=== PATIENT | male | born 1990 | race Hispanic/Latino ===

== ENCOUNTER 2018-01-14 01:51 | Emergency (ER) | payer SELFPAY ==
[2018-01-14 02:10] VITALS: BP 167/99; PULSE 79; RESP 17; TEMP 98.3; O2SAT 98
[2018-01-14] MEDS ORDERED: Sodium Chloride 0.9% 100 ML IV SCH (02:30)
--- NOTE | 2018-01-14 02:45 | ED PDOC ---
HPI: Psych/Substance Abuse Time Seen by Provider: 01/14/18 02:04 Chief Complaint (Nursing): Weakness/Neurological Deficit Chief Complaint (Provider): Weakness/Neurological Deficit History Per: Patient History/Exam Limitations: no limitations Onset/Duration Of Symptoms: Days (x 3) Current Symptoms Are (Timing): Still Present Modifying Factor(s): Cocaine Additional Complaint(s): 27 year old male presents to the ED complaining of weakness for the last three days. Patient reports he has been working very long hours and has not been eating or drinking well for the last three days. States that he works at a building [employer]. Upon further questioning, he admitted to using nearly 10 g of cocaine in the last week. Denies nausea, vomiting, diarrhea, chest pain, diaphoresis and shortness of breath. PMD: none provided Past Medical History Reviewed: Historical Data, Nursing Documentation, Vital Signs Vital Signs: Last Vital Signs Temp 98.3 F 01/14/18 02:02 Pulse 79 01/14/18 02:02 Resp 17 01/14/18 02:02 BP 167/99 H 01/14/18 02:02 Pulse Ox 98 01/14/18 02:02 - Medical History PMH: No Chronic Diseases - Surgical History Surgical History: No Surg Hx - Family History Family History: States: Unknown Family Hx - Social History Current smoker - smoking cessation education provided: Yes Alcohol: Social Drugs: Cocaine - Allergies Allergies/Adverse Reactions: Allergies Allergy/AdvReac Type Severity Reaction Status Date / Time No Known Allergies Allergy Verified 01/14/18 02:09 Review of Systems ROS Statement: Except As Marked, All Systems Reviewed And Found Negative Constitutional: Positive for: Weakness, Other (fatigue) Physical Exam - Reviewed Nursing Documentation Reviewed: Yes Vital Signs Reviewed: Yes - Physical Exam Appears: Positive for: Non-toxic, No Acute Distress Head Exam: Positive for: ATRAUMATIC, NORMOCEPHALIC Skin: Positive for: Normal Color, Warm, Dry Eye Exam: Positive for: EOMI, Normal appearance, PERRL Neck: Positive for: Normal, Painless ROM, Supple Cardiovascular/Chest: Positive for: Regular Rate, Rhythm. Negative for: Murmur Respiratory: Positive for: Normal Breath Sounds. Negative for: Respiratory Distress Gastrointestinal/Abdominal: Positive for: Normal Exam, Soft Extremity: Positive for: Normal ROM. Negative for: Deformity Neurologic/Psych: Positive for: Alert, Oriented. Negative for: Motor/Sensory Deficits - Laboratory Results Result Diagrams: 01/14/18 03:01 01/14/18 03:01 - ECG O2 Sat by Pulse Oximetry: 98 (RA) Pulse Ox Interpretation: Normal Medical Decision Making Medical Decision Making: time: 02:23 Impression: 27 year old [place] male with fatigue in setting of substance abuse. Initial Plan: --EKG --Alcohol serum --CMP --urine drug --Urine dip --CBC with differentials --Normal saline IV 100 mls/hr Time; 03:52 Labs reviewed and revealed no clinically significant abnormalities with the exception of a positive UDS for cocaine. Patient is stable for discharge. Diagnosis is cocaine abuse. ---- Scribe Attestation: Documented by Shonna Mckeon, acting as a scribe for Montrell De La Vega MD Provider Scribe Attestation: All medical record entries made by the Scribe were at my direction and personally dictated by me. I have reviewed the chart and agree that the record accurately reflects my personal performance of the history, physical exam, medical decision making, and the department course for this patient. I have also personally directed, reviewed, and agree with the discharge instructions and disposition. Disposition - Clinical Impression Clinical Impression: Cocaine abuse - Patient ED Disposition Is Patient to be Admitted: No - Disposition Disposition: Routine/Home Disposition Time: 03:52 Condition: STABLE Instructions: Cocaine Use Disorder Forms: [employer] (Mexican)
[2018-01-14 03:08] LABS: BASO % 0.3 % (0.0-2.0); EOS # 0.1 K/uL (0.0-0.7); EOS % 1.3 % (0.0-4.0); HEMOGLOBIN 14.5 g/dL (12.0-18.0); LYMPH # 1.4 K/uL (1.0-4.3); LYMPH % 19.6 % (20.0-40.0); MEAN CELL VOLUME 90.2 fl (80.0-94.0); MEAN CORPUSCULAR HEMOGLOBIN 31.6 pg (27.0-31.0); MEAN CORPUSCULAR HGB CONC 35.1 g/dL (33.0-37.0); MEAN PLATELET VOLUME 7.2 fl (7.2-11.7); MONO # 0.6 K/uL (0.0-0.8); MONO % 7.5 % (0.0-10.0); NEUT # 5.2 K/uL (1.8-7.0); NEUT % 71.3 % (50.0-75.0); NRBC % 0.1 % (0.0-0.0); RBC 4.58 Mil/uL (4.40-5.90); RED CELL DISTRIBUTION WIDTH 12.7 % (11.5-14.5); WHITE BLOOD COUNT 7.3 K/uL (4.8-10.8)
[2018-01-14 03:22] LABS: ALB/GLOB RATIO 1.5 (1.0-2.1); ALBUMIN 4.3 g/dL (3.5-5.0); ALT/SGPT 29 U/L (21-72); AST/SGOT 40 U/L (17-59); BLOOD UREA NITROGEN 11 mg/dl (9-20); CALCIUM 9.2 mg/dL (8.4-10.2); GFR AFRICAN-AMERICAN > 60; GFR NON-AFRICAN AMERICAN > 60
[2018-01-14 03:31] LABS: BARBITURATES, UR NEGATIVE (NEGATIVE)
[2018-01-14 03:33] LABS: BENZODIAZEPINES, UR NEGATIVE (NEGATIVE); OPIATES, UR NEGATIVE (NEGATIVE); PHENCYCLIDINE, UR NEGATIVE (NEGATIVE)
--- NOTE | 2018-01-14 08:57 | CARD ---
APPROVED REPORT EKG Measurement Heart [id number] <Conclusion> Normal sinus rhythm Nonspecific intraventricular conduction delay Borderline ECG
== END 2018-01-14 04:05 | disposition home or self-care (01) ==
LOC: H.ER 01:51
DX: F14.10 Cocaine abuse, uncomplicated (principal)
CPT/HCPCS: 80053; 85025; 93005; 99282; G0480